=== PATIENT | female | born 2000 | race Caucasian/White ===

== ENCOUNTER 2022-04-08 02:31 | Emergency (ER) | payer OTHER ==
[~2022-04-08] VITALS: Ht 154.9 cm; Wt 48.0 kg
[2022-04-08 03:00] VITALS: BP 128/78
== END 2022-04-08 05:33 | disposition left against medical advice (07) ==
LOC: ER 02:31
DX: K01.1 Impacted teeth (principal); Z53.21 Procedure and treatment not carried out due to patient leaving prior to being seen by health care provider